=== PATIENT | female | born 1985 ===

== ENCOUNTER 2017-02-08 08:37 | Emergency (ER) | payer OTHER ==
[2017-02-08 08:42] VITALS: BP 131/79; PULSE 77; TEMP 97; O2SAT 99
[2017-02-08 08:44] VITALS: BMI 34.7
--- NOTE | 2017-02-08 10:19 | US ---
PROCEDURE: Ultrasound of the Kidneys HISTORY: left flank pain COMPARISON: None available. TECHNIQUE: Sonogram of the kidneys. FINDINGS: RIGHT KIDNEY: Measures: 13.3 x 6.8 x 4.7 cm. No obstructing calculus, hydronephrosis, or renal cyst identified. LEFT KIDNEY: Measures: 13.2 x 6.4 x 5.0 cm. No obstructing calculus, hydronephrosis, or renal cyst identified. OTHER FINDINGS: None. IMPRESSION: Unremarkable renal sonogram.
--- NOTE | 2017-02-08 10:27 | US ---
Indication: Left flank pain Comparison: None available. Technique: Ob transvaginal ultrasound. Findings: The uterus measures approximately 12.6 x 8.0 x 6.8 cm. Anteverted. There is a single intrauterine fetus present. The gestational sac measures 2.0 cm and is compatible with a gestational age of 6 weeks 3 days. The crown-rump length measures 1.8 cm and is compatible with a gestational age of 8 weeks 1 day. heart motion was not detected during this examination. The right ovary measures 3.8 x 2.6 x 2.6 cm and contains 1.2 x 0.9 x 0.8 cm cyst. The left ovary was not visualized. Blood flow was demonstrated to the right ovary. Impression: Single intrauterine with estimated gestational age 6 weeks 3 days by gestational sac calculation and 8 weeks 1 day by crown-rump length calculation. heart motion was not detected during this examination. Correlate clinically and follow-up as indicated. 1.2 cm probable right ovarian cyst. The left ovary is not visualized.
--- NOTE | 2017-02-08 10:52 | ED PDOC ---
HPI: Abdomen Time Seen by Provider: 02/08/17 09:08 Chief Complaint (Nursing): Abdominal Pain Chief Complaint (Provider): Abdominal Pain History Per: Patient History/Exam Limitations: no limitations Onset/Duration Of Symptoms: Hrs (this am), Waxing/Waning Current Symptoms Are (Timing): Still Present Associated Symptoms: denies: Vomiting, Diarrhea, Urinary Symptoms (dysuria or vaginal bleeding) Additional Complaint(s): Yudith Alves is a 31 year old female, wit no past medical history, who present to the emergency department complaining of left sided abdominal pain onset since this morning. Patient states the pain is on and off and it does not radiate. Patient is 8 weeks , . She has had no problems or pain during this . She has not received an ultrasound. She does receive care at the clinic. Patient spends a lot of time lifting her 15 y/o disabled child who in unable to walk. She denies any vomiting, diarrhea, dysuria , or vaginal bleeding. PMD: None provided. : 4 Para: 3 Past Medical History Reviewed: Historical Data, Nursing Documentation, Vital Signs Vital Signs: Last Vital Signs Temp 97 F L 02/08/17 08:42 Pulse 77 02/08/17 08:42 Resp BP 131/79 02/08/17 08:42 Pulse Ox 99 02/08/17 11:46 - Surgical History Surgical History: (x3) - Family History Family History: States: Unknown Family Hx - Social History Current smoker - smoking cessation education provided: No Alcohol: None Drugs: Denies - Allergies Allergies/Adverse Reactions: Allergies Allergy/AdvReac Type Severity Reaction Status Date / Time No Known Allergies Allergy Verified 02/08/17 08:51 Review of Systems ROS Statement: Except As Marked, All Systems Reviewed And Found Negative Gastrointestinal: Positive for: Abdominal Pain (left sided. on and off). Negative for: Vomiting, Diarrhea Genitourinary Female: Negative for: Dysuria, Vaginal Bleeding Physical Exam - Reviewed Nursing Documentation Reviewed: Yes Vital Signs Reviewed: Yes - Physical Exam Appears: Positive for: Well, Non-toxic, No Acute Distress Head Exam: Positive for: ATRAUMATIC, NORMAL INSPECTION, NORMOCEPHALIC Skin: Positive for: Normal Color, Warm, Dry Eye Exam: Positive for: EOMI, Normal appearance, PERRL Neck: Positive for: Normal, Painless ROM, Supple Cardiovascular/Chest: Positive for: Regular Rate, Rhythm. Negative for: Murmur Respiratory: Positive for: Normal Breath Sounds. Negative for: Respiratory Distress Gastrointestinal/Abdominal: Positive for: Normal Exam, Bowel Sounds, Soft. Negative for: Tenderness, Guarding, Rebound Back: Positive for: Normal Inspection. Negative for: L CVA Tenderness, R CVA Tenderness Extremity: Positive for: Normal ROM. Negative for: Pedal Edema, Deformity, Swelling Neurologic/Psych: Positive for: Alert, Oriented. Negative for: Motor/Sensory Deficits - ECG O2 Sat by Pulse Oximetry: 99 (RA) Pulse Ox Interpretation: Normal Medical Decision Making Medical Decision Making: Initial Impression: abdominal pain in . Differential includes: UTI and musculoskeletal pain. Rule out ectopic and other complications. Initial Plan: --Urine dipstick --Urine --reevaluation 1017 Renal US FINDINGS: RIGHT KIDNEY: Measures: 13.3 x 6.8 x 4.7 cm. No obstructing calculus, hydronephrosis, or renal cyst identified. LEFT KIDNEY: Measures: 13.2 x 6.4 x 5.0 cm. No obstructing calculus, hydronephrosis, or renal cyst identified. OTHER FINDINGS: None. IMPRESSION: Unremarkable renal sonogram. 1026 Transvaginal US Findings: The uterus measures approximately 12.6 x 8.0 x 6.8 cm. Anteverted. There is a single intrauterine fetus present. The gestational sac measures 2.0 cm and is compatible with a gestational age of 6 weeks 3 days. The crown-rump length measures 1.8 cm and is compatible with a gestational age of 8 weeks 1 day. heart motion was not detected during this examination. The right ovary measures 3.8 x 2.6 x 2.6 cm and contains 1.2 x 0.9 x 0.8 cm cyst. The left ovary was not visualized. Blood flow was demonstrated to the right ovary. Impression: Single intrauterine with estimated gestational age 6 weeks 3 days by gestational sac calculation and 8 weeks 1 day by crown-rump length calculation. heart motion was not detected during this examination. Correlate clinically and follow-up as indicated. 1.2 cm probable right ovarian cyst. The left ovary is not visualized. Scribe Attestation: Documented by Good Emery, acting as a scribe for Dionicio Garcia MD Provider Scribe Attestation: All medical record entries made by the Scribe were at my direction and personally dictated by me. I have reviewed the chart and agree that the record accurately reflects my personal performance of the history, physical exam, medical decision making, and the department course for this patient. I have also personally directed, reviewed, and agree with the discharge instructions and disposition. Disposition - Clinical Impression Clinical Impression: Abdominal pain in female, Abdominal pain during , Threatened - Patient ED Disposition Is Patient to be Admitted: No Doctor Will See Patient In The: Office Counseled Patient/Family Regarding: Studies Performed, Diagnosis, Need For Followup - Disposition Referrals: [facility] [Outside] Disposition: Routine/Home Disposition Time: 12:35 Condition: GOOD Additional Instructions: Follow up with your PCP in 1 week. Return for worsening within 2 days. Instructions: Abdominal Pain in (ED), Threatened Miscarriage (ED) Print Language: URDU
== END 2017-02-08 12:52 | disposition home or self-care (01) ==
LOC: H.ER 08:37
DX: O20.0 Threatened abortion (principal); Z3A.08 8 weeks gestation of pregnancy